=== PATIENT | female | born 1935 | race Two or more races ===

== ENCOUNTER 2017-08-12 12:35 | Emergency (ER) | payer MEDICARE, MEDICAID ==
[~2017-08-12] VITALS: Ht 152.4 cm; Wt 55.0 kg
[2017-08-12 13:05] LABS: BASOPHILS % 0.4 % (0.0-2.0); EOSINOPHILS % 0.3 % (0.0-5.0); HEMATOCRIT. 39.4 % (36.0-48.0); HEMOGLOBIN. 12.9 g/dL (12.0-16.0); LYMPHOCYTES % 14.6 % (20.0-50.0); MEAN CORPUSCULAR HEMOGLOBIN 29.1 pg (28.0-32.0); MEAN PLATELET VOLUME 8.8 fl (7.4-10.4); MONOCYTES % 12.1 % (2.0-8.0); NEUTROPHILS % 72.6 % (40.0-76.0); PLATELET 235 x1000/uL (130-400); RED BLOOD CELL COUNT 4.43 mill/uL (4.2-5.4); RED CELL DISTRIBUTION WIDTH 14.9 % (11.6-14.6)
[2017-08-12 13:13] LABS: INR 1.1; PROTHROMBIN TIME 11.7 sec (9.4-11.6)
[2017-08-12 13:18] LABS: CHLORIDE 100 mEq/L (98-107)
[2017-08-12 13:25] LABS: TROPONIN I < 0.02 ng/mL (0.00-0.04)
[2017-08-12] MEDS ORDERED: DEXTROSE 50% WATER 50ML SYRINGE IV ONE (15:14)
[2017-08-12] MEDS ORDERED: CEFTRIAXONE 1 G PREMIX 50 ML IV ONE (15:30)
[2017-08-12] MEDS ORDERED: DILTIAZEM HCL 125 MG in DEXT 5% WATER 100 ML IV ONE (15:30)
[2017-08-12] MEDS ORDERED: METRONIDAZOLE 500 MG PREMIX 100 ML IV ONE (15:30)
[2017-08-12] MEDS ORDERED: SODIUM CHLORIDE 0.45% 1,000 ML IV SCH (16:13)
[2017-08-12] MEDS ORDERED: IPRATROPIUM/ALBUTEROL 0.5-3(2.5)MG/3ML NEB INH PRN (16:15)
[2017-08-12] MEDS ORDERED: DIPHENHYDRAMINE 50MG/ML VIAL IV PRN (16:15)
[2017-08-12] MEDS ORDERED: CLONIDINE 0.1MG TABLET PO PRN (16:15)
[2017-08-12] MEDS ORDERED: DOCUSATE SODIUM 100MG CAPSULE PO PRN (16:15)
[2017-08-12] MEDS ORDERED: ENOXAPARIN 40MG/0.4ML SYR SUBCUT SCH (16:15)
[2017-08-12] MEDS ORDERED: ACETAMINOPHEN 650MG/20.3ML UDC GT PRN (16:15)
[2017-08-12] MEDS ORDERED: LEVOFLOXACIN 500MG PREMIX 100 ML IV SCH (16:15)
[2017-08-12] MEDS ORDERED: ACETAMINOPHEN 650MG SUPP PR PRN (16:15)
[2017-08-12] MEDS ORDERED: ACETAMINOPHEN 325MG TABLET PO PRN (16:15)
[2017-08-12] MEDS ORDERED: MORPHINE SULFATE 4 MG/ML CPJ (NOT FOR IM USE) IV PRN (16:15)
[2017-08-12] MEDS ORDERED: HYDROCODONE/ACETAMINOPHEN 10/325MG TABLET PO PRN (16:15)
[2017-08-12] MEDS ORDERED: HYDROCODONE/ACETAMINOPHEN 5/325MG TABLET PO PRN (16:15)
[2017-08-12] MEDS ORDERED: MAGNESIUM/ALUMINUM HYDROXIDE/SIMETHICONE 30ML UDC PO PRN (16:15)
[2017-08-12] MEDS ORDERED: NA PHOS,M-B/NA PHOS,DI-BA ENEMA 118ML PR PRN (16:15)
[2017-08-12] MEDS ORDERED: GUAIFENESIN 200MG/10ML SUGAR FREE UDC PO PRN (16:15)
[2017-08-12] MEDS ORDERED: ONDANSETRON HCL 4MG/2ML VIAL IV PRN (16:15)
[2017-08-12] MEDS ORDERED: DILTIAZEM HCL 30MG TABLET PO SCH (17:00)
[2017-08-12 17:19] VITALS: BP 158/113
[2017-08-12] MEDS ORDERED: METRONIDAZOLE 500 MG PREMIX 100 ML IV SCH (22:00)
[2017-08-12] MEDS ORDERED: SODIUM CHLORIDE 0.9% INJ 3ML FLUSH IVF SCH (22:00)
[2017-08-18] MEDS ORDERED: METR500T4 PO (22:54)
[2017-08-18] MEDS ORDERED: CIPR-168 PO (22:54)
[2017-08-18] MEDS ORDERED: HYDR-4001 PO (22:54)
[2017-08-19] MEDS ORDERED: VALS1TAB78 PO (07:42)
== END 2017-08-12 18:35 | disposition left against medical advice (07) ==
LOC: ER 12:48 → EDBEDREQ 15:46 → EDBEDREQTM 15:46 → ENRESERV 16:10 → CANRESERV 16:10 → SUPCPDRO 16:47 → ER 18:35 → CANBEDREQ 21:36
DX: K81.9 Cholecystitis, unspecified (principal); I48.91 Unspecified atrial fibrillation; I11.0 Hypertensive heart disease with heart failure; I50.9 Heart failure, unspecified; D72.829 Elevated white blood cell count, unspecified; N17.9 Acute kidney failure, unspecified; E87.6 Hypokalemia; E87.1 Hypo-osmolality and hyponatremia; M54.9 Dorsalgia, unspecified; I95.9 Hypotension, unspecified; F32.9 Major depressive disorder, single episode, unspecified; Z90.710 Acquired absence of both cervix and uterus
CPT/HCPCS: 36415; 71045; 71250; 74176; 80053; 82962; 83880; 84484; 85025; 85610; 93005; 96374; 99285; J7040; J3490; J7060

== ENCOUNTER 2017-08-26 07:40 | Observation (INO) | payer MEDICARE, MEDICAID ==
[~2017-08-26] VITALS: Ht 152.4 cm; Wt 77.3 kg
[~2017-08-26 07:40] MED LIST: CIPR-168 PO; HYDR-4001 PO; METR500T4 PO; VALS1TAB78 PO
[2017-08-26] MEDS ORDERED: SODIUM CHLORIDE 0.9% 500 ML IV ONE ×2 (08:40→11:05)
[2017-08-26 09:04] LABS: BASOPHILS % 0.5 % (0.0-2.0); EOSINOPHILS % 0.2 % (0.0-5.0); HEMATOCRIT. 36.5 % (36.0-48.0); HEMOGLOBIN. 11.7 g/dL (12.0-16.0); LYMPHOCYTES % 22.9 % (20.0-50.0); MEAN CORPUSCULAR HEMOGLOBIN 28.3 pg (28.0-32.0); MEAN CORPUSCULAR VOLUME 88.3 fL (81.0-99.0); MEAN PLATELET VOLUME 7.7 fl (7.4-10.4); MONOCYTES % 12.5 % (2.0-8.0); NEUTROPHILS % 63.9 % (40.0-76.0); PLATELET 429 x1000/uL (130-400); RED BLOOD CELL COUNT 4.13 mill/uL (4.2-5.4); RED CELL DISTRIBUTION WIDTH 14.7 % (11.6-14.6)
[2017-08-26 09:12] LABS: INR 1.1; PROTHROMBIN TIME 11.8 sec (9.4-11.6)
[2017-08-26 09:15] LABS: CHLORIDE 106 mEq/L (98-107)
[2017-08-26 09:21] LABS: TROPONIN I < 0.02 ng/mL (0.00-0.04)
[2017-08-26] MEDS ORDERED: IPRATROPIUM/ALBUTEROL 0.5-3(2.5)MG/3ML NEB INH PRN (14:00)
[2017-08-26] MEDS ORDERED: CLONIDINE 0.1MG TABLET PO PRN (14:00)
[2017-08-26] MEDS ORDERED: ONDANSETRON HCL 4MG/2ML VIAL IV PRN (14:00)
[2017-08-26] MEDS ORDERED: ACETAMINOPHEN 650MG SUPP PR PRN (14:00)
[2017-08-26 15:20] LABS: CREATINE KINASE 50 IU/L (26-192); TROPONIN I < 0.02 ng/mL (0.00-0.04)
[2017-08-26 16:00] VITALS: BP 124/80
[2017-08-26] MEDS ORDERED: ESCI10TA54 PO (16:10)
[2017-08-26] MEDS ORDERED: LEVO500T89 PO (16:10)
[2017-08-26] MEDS ORDERED: TRAM50TA3 PO (16:10)
[2017-08-26 16:52] VITALS: BP 124/80
[2017-08-26] MEDS: DEXT 5%/0.45% NACL 1000ML 1,000 ML IV SCH (17:21)
[2017-08-26] MEDS ORDERED: LEVOFLOXACIN 500MG PREMIX 100 ML IV NR (18:00)
[2017-08-26] MEDS ORDERED: METRONIDAZOLE 500 MG PREMIX 100 ML IV SCH ×2 (18:00→21:00)
[2017-08-26] MEDS: ENOXAPARIN 30MG/0.3ML SYR SUBCUT SCH (18:01)
[2017-08-26] MEDS: HYDROCODONE/ACETAMINOPHEN 5/325MG TABLET PO PRN ×2 (18:09→23:38)
[2017-08-26 20:00] VITALS: BP 122/66
[2017-08-26] MEDS ORDERED: LEVOFLOXACIN 500MG PREMIX 100 ML IV SCH (20:00)
[2017-08-26] MEDS: METRONIDAZOLE 500 MG PREMIX 100 ML IV SCH (22:46)
[2017-08-27] MEDS ORDERED: TEMAZEPAM 15MG CAPSULE PO PRN ×2 (03:45→17:15)
[2017-08-27 04:00] VITALS: BP 145/70
[2017-08-27] MEDS: METRONIDAZOLE 500 MG PREMIX 100 ML IV SCH ×2 (05:25→13:56)
[2017-08-27] MEDS: DEXT 5%/0.45% NACL 1000ML 1,000 ML IV SCH (05:36)
[2017-08-27 06:06] LABS: CLARITY URINE CLEAR (CLEAR); COLOR URINE YELLOW (YELLOW); KETONES URINE NEGATIVE (NEGATIVE); LEUKOCYTE ESTERASE URINE TRACE (NEGATIVE); NITRITE URINE NEGATIVE (NEGATIVE); OCCULT BLOOD URINE NEGATIVE (NEGATIVE); PH URINE 6.5 (4.5-8.0); PROTEIN URINE TRACE (NEGATIVE); SPECIFIC GRAVITY URINE 1.016 (1.005-1.030); UROBILINOGEN URINE 0.2 E.U./dL (0.2-1.0)
[2017-08-27 08:00] VITALS: BP 128/75
[2017-08-27] MEDS ORDERED: PNEUMOCOCCAL 23-VAL P-SAC VAC 0.5 ML IM ONE (09:00)
[2017-08-27] MEDS ORDERED: INFLUENZA VIRUS VACCINE 0.5ML SYR IM ONE (09:00)
[2017-08-27] MEDS ORDERED: LORAZEPAM 2MG/ML CPJ IV NR (10:45)
[2017-08-27 12:00] VITALS: BP 158/74
[2017-08-27] MEDS: HYDROCODONE/ACETAMINOPHEN 5/325MG TABLET PO PRN ×2 (13:05→18:23)
[2017-08-27 16:00] VITALS: BP 141/70
[2017-08-27 17:29] LABS: HEMATOCRIT. 32.7 % (36.0-48.0); HEMOGLOBIN. 10.7 g/dL (12.0-16.0); MEAN CORPUSCULAR HEMOGLOBIN 28.9 pg (28.0-32.0); MEAN CORPUSCULAR VOLUME 88.4 fL (81.0-99.0); MEAN PLATELET VOLUME 7.7 fl (7.4-10.4); PLATELET 389 x1000/uL (130-400); RED CELL DISTRIBUTION WIDTH 15.2 % (11.6-14.6)
[2017-08-27 17:53] LABS: PLATELET ESTIMATE NORMAL
[2017-08-27] MEDS ORDERED: LEVOFLOXACIN 250MG PREMIX 50 ML IV SCH ×2 (18:00→21:00)
[2017-08-27 20:00] VITALS: BP 130/64
[2017-08-27] MEDS ORDERED: BUDESONIDE 0.5MG/2ML NEB HHN SCH (20:00)
[2017-08-27] MEDS: ENOXAPARIN 30MG/0.3ML SYR SUBCUT SCH (20:53)
[2017-08-27 21:10] VITALS: BP 121/84
== END 2017-08-27 22:30 ==
LOC: ER 08:02 → INTOOBSV 11:34 → 5WST 11:34 → EDBEDREQ 11:37 → ENRESERV 14:48 → 5WST 23:44
PROVIDERS: ADMIT Internal Medicine; ATTEND Internal Medicine
DX: R55 Syncope and collapse (principal); E86.0 Dehydration; D64.9 Anemia, unspecified; A41.9 Sepsis, unspecified organism; I11.0 Hypertensive heart disease with heart failure; I50.9 Heart failure, unspecified; I48.91 Unspecified atrial fibrillation; F03.90 Unspecified dementia, unspecified severity, without behavioral disturbance, psychotic disturbance, mood disturbance, and anxiety; Z90.49 Acquired absence of other specified parts of digestive tract; Z23 Encounter for immunization
CPT/HCPCS: 36415; 70450; 70551; 71045; 80053; 81003; 82550; 83605; 83880; 84484; 85025; 85610; 87493; 89055; 90471; 90472; 93005; 96361; 96365; 96366; 96367; 96372; 96375; 99285; G0378; J1650; J1956; J2060; J3490; J7030; J7040; 90686; 90732; 96360; J7626